=== PATIENT | male | born 1985 | race Caucasian/White ===

== ENCOUNTER 2017-11-04 03:17 | Emergency (ER) | payer BC ==
--- NOTE | 2017-11-04 03:35 | CPEKG ---
Heart Rate: 72 RR Interval: 833 P-R Interval: 156 QRSD Interval: 94 QT Interval: 380 QTC Interval: 416 P [place]: 66 QRS [place]: 55 T Wave [place]: 46 EKG Severity - NORMAL ECG - EKG Impression: SINUS RHYTHM Electronically Signed By: Indiana Rodriguez 05-Nov-2017 03:23:46
[2017-11-04] MEDS ORDERED: NS 1,000 ML IV ONE (03:56)
[2017-11-04 04:17] LABS: PLATELET COUNT 122 10^3/uL (150-400)
--- NOTE | 2017-11-04 04:57 | EDPHY ---
H & P Stated Complaint: syncopal episode, hit head Time Seen by Provider: 11/04/17 04:06 HPI/ROS: HPI The patient presents with episode of ALOC which occurred just prior to arrival. The patient was sleeping, awoke in the middle of the night and went to the bathroom. He urinated and then began to feel lightheaded. He sat on the edge of the bathtub and thought he was feeling better. He did experience some bilateral tinnitus. He stood up and then lost consciousness, falling to the ground. He called out for his , she responded and found him on the ground. He had hit his head on the bathroom scale. When he stood up again he had a 2nd episode of ALOC where he lost postural tone. He was out for about 10 sec and was pale and diaphoretic according to his . Afterwards he felt somewhat woozy. He does have a history of fainting spells as a child, last when he was 19 years old. He also has a history of palpitations which were evaluated with a 48 hr Holter monitor about 6 months ago with no events noted.. REVIEW OF SYSTEMS Constitutional: No fever, no chills. Eyes: No discharge. ENT: No sore throat. Cardiovascular: No chest pain, no palpitations. Respiratory: No cough, no shortness of breath. Gastrointestinal: No abdominal pain, no vomiting. Genitourinary: No hematuria. Musculoskeletal: No back pain. Skin: No rashes. Neurological: No headache. PMHx: Palpitations Soc Hx: Housed PHYSICAL General Appearance: Alert, no distress Eyes: Pupils equal and round no pallor or injection ENT, Mouth: Mucous membranes moist Respiratory: There are no retractions, lungs are clear to auscultation Cardiovascular: Regular rate and rhythm Gastrointestinal: Abdomen is soft and non-tender, no masses, bowel sounds normal Neurological: A&O, moves all extremities Skin: Warm and dry, no rashes Musculoskeletal: Neck is supple non tender Extremities: symmetrical, full range of motion Psychiatric: Patient is oriented X 3, there is no agitation Source: Patient Exam Limitations: No limitations - Personal History Current Tetanus/Diphtheria Vaccine: Yes - Medical/Surgical History Hx Asthma: No Hx Chronic Respiratory Disease: No Hx Diabetes: No Hx Cardiac Disease: No Hx Renal Disease: No Hx Cirrhosis: No Hx Alcoholism: No Hx HIV/AIDS: No Hx Splenectomy or Spleen Trauma: No Other PMH: ADHD, depression, - Social History Smoking Status: Never smoked Constitutional: Initial Vital Signs Temperature (C) 36.4 C 11/04/17 03:19 Heart Rate 93 11/04/17 03:19 Respiratory Rate 18 11/04/17 03:19 Blood Pressure 141/91 H 11/04/17 03:19 O2 Sat (%) 97 11/04/17 03:19 O2 Delivery Mode Room Air Allergies/Adverse Reactions: acetaminophen [From NyQuil] Allergy (Verified 11/04/17 03:22) dextromethorphan [From NyQuil] Allergy (Verified 11/04/17 03:22) doxylamine [From NyQuil] Allergy (Verified 11/04/17 03:22) pseudoephedrine [From NyQuil] Allergy (Verified 11/04/17 03:22) Home Medications: Medication Instructions Recorded Bupropion HCl 11/04/17 Prazosin HCl 11/04/17 Provigil 11/04/17 ZYRTEC 11/04/17 Medical Decision Making - Diagnostics EKG Interpretation: EKG: Complete interpretation has been separately recorded in the [email or web address] archive. Summary impression: Normal sinus rhythm Differential Diagnosis: This is a 32-year-old healthy male who presents with 2 episodes of ALOC earlier this morning. Given occurred upon awakening and urinating, I suspect vasovagal syncope as the cause. He did not have any preceding palpitations, shortness of breath, chest pain. Other possibilities include hypoglycemia, arrhythmia. In the emergency department, patient was given 1 L IV fluids. EKG was checked and was unremarkable. He had no events on telemetry monitoring. Labs were checked and were unremarkable not demonstrating any anemia or electrolyte disturbance. I feel the patient has suffered from vasovagal syncope. He may have also suffered a mild concussion given his fall from standing. He says he is feeling somewhat foggy now. He does not have a headache. He does not have any external signs of trauma. He does not meet criteria for CT scan of his head. I have mentioned to him that he may have a mild concussion. I have discussed treatment for this with him. He has been seen by [facility] for palpitations with no events noted on his cardiac monitoring. I feel it would be unlikely that this event was caused by a arrhythmia given no preceding palpitations. I have instructed him to follow up with [facility] if palpitations continue. - Data Points Laboratory Results: Laboratory Results 11/04/17 03:50 11/04/17 03:50 11/04/17 11/04/17 03:50 03:50 WBC 4.53 10^3/uL 10^3/uL (3.80-9.50) RBC 5.45 10^6/uL 10^6/uL (4.40-6.38) Hgb 16.9 g/dL g/dL (13.7-17.5) Hct 47.5 % % (40.0-51.0) MCV 87.2 fL fL (81.5-99.8) MCH 31.0 pg pg (27.9-34.1) MCHC 35.6 g/dL g/dL (32.4-36.7) RDW 12.9 % % (11.5-15.2) Plt Count 122 10^3/uL L 10^3/uL (150-400) MPV 12.1 fL H fL (8.7-11.7) Neut % (Auto) 51.5 % % (39.3-74.2) Lymph % (Auto) 33.3 % % (15.0-45.0) [place] % (Auto) 11.7 % % (4.5-13.0) Eos % (Auto) 2.4 % % (0.6-7.6) Baso % (Auto) 0.7 % % (0.3-1.7) Nucleat RBC Rel Count 0.0 % % (0.0-0.2) Absolute Neuts (auto) 2.33 10^3/uL 10^3/uL (1.70-6.50) Absolute Lymphs (auto) 1.51 10^3/uL 10^3/uL (1.00-3.00) Absolute Monos (auto) 0.53 10^3/uL 10^3/uL (0.30-0.80) Absolute Eos (auto) 0.11 10^3/uL 10^3/uL (0.03-0.40) Absolute Basos (auto) 0.03 10^3/uL 10^3/uL (0.02-0.10) Absolute Nucleated RBC 0.00 10^3/uL 10^3/uL (0-0.01) Immature Gran % 0.4 % % (0.0-1.1) Immature Gran # 0.02 10^3/uL 10^3/uL (0.00-0.10) Sodium 141 mEq/L mEq/L (135-145) Potassium 3.9 mEq/L mEq/L (3.3-5.0) Chloride 106 mEq/L mEq/L (97-110) Carbon Dioxide 24 mEq/l mEq/l (22-31) Anion Gap 11 mEq/L mEq/L (8-16) BUN 15 mg/dL mg/dL (7-23) Creatinine 0.8 mg/dL mg/dL (0.7-1.3) Estimated GFR > 60 Glucose 91 mg/dL mg/dL (70-100) Calcium 9.2 mg/dL mg/dL (8.5-10.4) Total Bilirubin 0.7 mg/dL mg/dL (0.1-1.4) AST 21 IU/L IU/L (17-59) ALT 23 IU/L IU/L (21-72) Alkaline Phosphatase 81 IU/L IU/L (38-126) Total Protein 7.0 g/dL g/dL (6.3-8.2) Albumin 4.4 g/dL g/dL (3.5-5.0) Medications Given: Discontinued Medications Sodium Chloride (Ns) 1,000 mls @ 0 mls/hr IV ONCE ONE PRN Reason: Wide Open Stop: 11/04/17 03:57 Last Admin: 11/04/17 04:00 Dose: 1,000 mls Departure - Departure Disposition: Home, Routine, Self-Care Clinical Impression: Vasovagal syncope Condition: Good Instructions: Syncope (ED), Concussion (ED) Additional Instructions: Please make sure to drink plenty of fluids. You should return to the emergency department if your worse in any way. If your feeling foggy your have a headache we recommend that you take ibuprofen 400 mg every 6 hr and do not perform any activities that are too mentally taxing. [facility] - As per Instructions
[2017-11-04 05:17] VITALS: BP 107/78
== END 2017-11-04 05:17 | disposition home or self-care (01) ==
DX: R55 Syncope and collapse (principal)